=== PATIENT | female | born 1985 | race Caucasian/White ===

== ENCOUNTER 2022-08-29 06:35 | Day surgery (SDC) | payer OTHER ==
[~2022-08-29] VITALS: Ht 180.3 cm; Wt 85.7 kg
[2022-08-29] VITALS (232 sets, daily range): BP systolic 78–123; BP diastolic 44–89
--- NOTE | 2022-08-29 07:10 | NUR ---
PT HAS ARRIVED TO [facility] SUITES WITH DAD. BOTH HAVE BEEN ESCORTED TO ROOM AND EXPLAINED POC, ALL QUESTIONS HAVE BEEN ADDRESSED. PT HAS BEEN ORIENTED TO RROM, CALL LIGHT AND FALL RISK PRECATIONS. PT IS A&OX3, FOLLOWS COMMANDS AND IS ABLE TO MAKE HIS NEEDS KNOWN. PT VS ASSESSED. PT NEEDS HAVE BEEN ADDRESSED. WILL CONTINUE TO MONITOR.
[2022-08-29 08:43] LABS: BASO% 0.6 % (0-3); EOS% 1.9 % (0-8); HEMATOCRIT 44.1 % (37.0-47.0); HEMOGLOBIN 14.1 g/dl (12.0-16.0); IMMATURE GRANULOCYTES 0.2 % (0.0-5.0); LYMPH% 38.3 % (15-41); MEAN CELL VOLUME 87.5 fL CALC (80.0-100.0); NEUT# 2.32 thou/uL (2.00-7.15); RED BLOOD COUNT 5.04 mill/uL (4.20-5.60)
[2022-08-29 09:01] LABS: ALBUMIN 4.8 g/dL (3.2-5.0); ALKALINE PHOSPHATASE 89 u/l (38-126); ANION GAP 10 (6-22 (CALC)); BUN 12 mg/dL (7-17); BUN/CREATININE RATIO 17 (12-20 (CALC)); CARBON DIOXIDE 30 mmol/l (22-30); CHLORIDE 102 mmol/l (95-108); CREATININE 0.7 mg/dL (0.5-1.0); GFR FOR AFR.AMER. > 60 ML/MIN (>=60 (CALC)); GFR OTHER RACES > 60 ML/MIN (>=60 (CALC)); POTASSIUM 3.9 mmol/l (3.5-5.1); SGOT/AST 103 u/l (14-36); SODIUM 138 mmol/l (137-146); TOTAL PROTEIN 7.5 g/dL (6.3-8.2)
[2022-08-29] MEDS ORDERED: XANAX1 MG PO (09:07)
--- NOTE | 2022-08-29 09:30 | NUR ---
PT HAS BEEN REASSESSED, PT IS SLEEPING EASILY AROUSED, BUT FALLS BACK TO SLEEP. WILL CONTINUE TO MONITOR. BOLUS R'CD PER
--- NOTE | 2022-08-29 11:35 | NUR ---
Induction Note Patient to [facility] procedure room. Time out performed at 1135. Patient placed on monitors, Aaron hugger, bilateral wrist restraints applied for ET tube protection. Versed 5mg given IV push at 1136 Tourniquet applied to RIGHT arm Lidocaine 100mg given at 1137 IV push followed by Rocoronium 10mg at 1138 IV push and held for 90 seconds. Propofol bolus of 180mg given at 1140 IV push. Succinylcholine 100mg given IV push at 1141. Smooth intubation with 7.5 ETT. Positive CO2. Positive Auscultation for air exchange. Patient placed on ventilator for spontaneous ventilation. Placed on Propofol IV drip at 1142. OG inserted. Positive air on auscultation. Positive gastric content. Stomach washed at this time.
--- NOTE | 2022-08-29 11:50 | NUR ---
OG close note Stomach washed at this time. Naltrexone 50 mg with Clonidine 0.1 mg via OG tube. OG will be clamped for 45 minutes.
--- NOTE | 2022-08-29 12:35 | NUR ---
OG open note OG open at this time. Gastric content draining into drainage bag. OG to drain for 45 minutes. Propofol will be titrated down based on patient.
--- NOTE | 2022-08-29 13:20 | NUR ---
OG close note Stomach washed at this time. Naltrexone 50 mg with Clonidine 0.2 mg via OG tube. OG will be clamped for 45 minutes.
--- NOTE | 2022-08-29 14:50 | NUR ---
OG close note Stomach washed at this time. Naltrexone 50 mg with Clonidine 0.1 mg via OG tube. OG will be clamped for 45 minutes.
--- NOTE | 2022-08-29 16:40 | NUR ---
OG close note Stomach washed at this time. Naltrexone 12.5 mg with Clonidine 0.1 mg via OG tube. OG will be clamped for 45 minutes.
[2022-08-29] MEDS ORDERED: CLONIDINE0.1 MG PO (16:41)
[2022-08-29] MEDS ORDERED: KLONOPIN2 MG PO (16:41)
[2022-08-29] MEDS ORDERED: NALTREXONE50 MG PO (16:41)
--- NOTE | 2022-08-29 19:00 | NUR ---
Extubation note Closing medications given Benadryl 50mg IV push, Decadron 10mg IV push,Magnesium 4 grams IV, Zofran 8mg IV push, Octreotide 100mcg SC. Stomach washed out prior to extubation. Suctioned gastric content. OG removed. Patient extubated. Propofol Discontinued. Wrist restraints removed. Aaron hugger Removed. See [facility] Moderate sedate recovery record for further notes and assessment.
--- NOTE | 2022-08-29 19:30 | NUR ---
PT HAS BEEN TRANSFERED TO [facility], REPORT GIVEN TO LAURA DONOVAN. PT IS AOUABLE TO TACTILE STIMULI, 2LNC ATTACHED. VS ASSESSED. LR INFUSING TO RAC @ 125ML/HR. BED ALARM IS ACTIVE.
--- NOTE | 2022-08-29 19:35 | NUR ---
PATIENT RECEIVED TO ROOM 287. RESTING QUIETLY EYES CLOSED. VITALS OBTAINED, VSS; NO DISTRESS NOTED. BEDSIDE REPORT RECEIVED FROM LAURA MULLINS. BED IN LOW POSITION, LOCKED; ALARM ACTIVATED.
--- NOTE | 2022-08-30 00:50 | NUR ---
RESTING QUIETLY EYES CLOSED. BED IN LOW POSITION, ALARM ACTIVATED.
[2022-08-30 04:06] VITALS: BP 141/92
--- NOTE | 2022-08-30 04:36 | NUR ---
LARGE YELLOW EMESIS. SCHEDULED REGLAN ADMINISTERED AT THIS TIME. WILL FOLLOW WITH ORAL MEDS IN A HALF HOUR.
[2022-08-30 05:38] LABS: BASO% 0.1 % (0-3); HEMATOCRIT 38.4 % (37.0-47.0); HEMOGLOBIN 12.6 g/dl (12.0-16.0); IMMATURE GRANULOCYTES 0.2 % (0.0-5.0); LYMPH% 9.8 % (15-41); MEAN CELL VOLUME 85.7 fL CALC (80.0-100.0); MEAN CORPUSCULAR HGB 28.1 pG CALC (26.0-32.0); MEAN CORPUSCULAR HGB CONC 32.8 g/dL CAL (32.0-36.0); MONO% 1.4 % (2-13); NEUT# 8.06 thou/uL (2.00-7.15); NEUT% 88.5 % (42-76); RED BLOOD COUNT 4.48 mill/uL (4.20-5.60); RED CELL DISTRI WIDTH 11.8 % (11.5-15.5)
[2022-08-30 05:52] LABS: ALBUMIN 4.1 g/dL (3.2-5.0); ALKALINE PHOSPHATASE 74 u/l (38-126); BUN 11 mg/dL (7-17); BUN/CREATININE RATIO 16 (12-20 (CALC)); CHLORIDE 103 mmol/l (95-108); CREATININE 0.7 mg/dL (0.5-1.0); GFR FOR AFR.AMER. > 60 ML/MIN (>=60 (CALC)); GFR OTHER RACES > 60 ML/MIN (>=60 (CALC)); MAGNESIUM 2.1 mg/dL (1.6-2.3); POTASSIUM 4.3 mmol/l (3.5-5.1); SGOT/AST 62 u/l (14-36); SODIUM 136 mmol/l (137-146); TOTAL PROTEIN 6.4 g/dL (6.3-8.2)
[2022-08-30 05:59] LABS: ANION GAP 14 (6-22 (CALC)); BILIRUBIN, TOTAL 0.2 mg/dL (0.02-1.3); CARBON DIOXIDE 23 mmol/l (22-30)
--- NOTE | 2022-08-30 07:05 | NUR ---
REPORT FROM ZION SANCHEZ. ASSUMED PT CARE.
[2022-08-30 07:20] VITALS: BP 131/61
[2022-08-30 07:24] VITALS: BP 131/61
--- NOTE | 2022-08-30 08:07 | NUR ---
PT VERY RESTLESS AT THIS TIME. DECREASED STIMULI, PROVIDED WARM BLANKETS AND MEDICATED WITH PRN KLONOPIN. CALL LIGHT WITHIN REACH. BED ALARM ON FOR SAFETY. WILL CONTINUE TO MONITOR.
--- NOTE | 2022-08-30 09:25 | NUR ---
Dr. 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 Expected discharge today. Discharge plan in progress.
--- NOTE | 2022-08-30 11:41 | NUR ---
Patient's support person (SP) telephoned with overnight update and to begin discharge planning. All questions answered satisfactorily, no concerns presented. SP agreeable to discharge plan.
--- NOTE | 2022-08-30 11:51 | NUR ---
ASSISTED PT OOB TO BATHROOM. PT AMBULATED WITH STEADY GAIT. NO APPARENT S/S OF DISTRESS NOTED. PT SET UP FOR SHOWER AT THIS TIME AND CLEAN LINENS APPLIED TO BED. CALL LIGHT WITHIN REACH. WILL CONTINUE TO MONITOR.
[2022-08-30 12:37] VITALS: BP 140/77
--- NOTE | 2022-08-30 12:45 | NUR ---
Dr. Sung to bedside for post-procedure evaluation. Report from LAURA Sanches. Discharge process reviewed, discharge requirements discussed with patient including ambulation, tolerance of food and oral fluids, and personal hygeine. Cleared for discharge after 1600.
--- NOTE | 2022-08-30 16:02 | NUR ---
RIGHT GROIN TRIPLE LUMEN CVAD REMOVED AT THIS TIME. PT TOLERATED WELL. PRESSURE DRESSING APPLIED.
--- NOTE | 2022-08-30 16:40 | NUR ---
Patient discharged in stable condition. Reports no nausea, tolerated PO intake, ambulatory with stable gait. CVC removed on floor and confirmed in discharge suite. Patient remained alert and conversive during discharge teaching. Father states undestanding of discharge instructions and offers no further questions. Medication education given at length and patient and father stated understanding.
--- NOTE | 2022-08-30 16:55 | NUR ---
Discharge instructions given. Patient verbalizes understanding of same. Discharged in stable condition via Ambulatory to Home with family. All belongings sent with pt.
== END 2022-08-30 16:56 | disposition home or self-care (01) | DRG 897 ==
LOC: ANR 06:35 → MS2 06:35 → ANR 07:00 → MS2 17:22 → ANR 08-30 16:56
PROVIDERS: ATTEND Anesthesiology Critical Care Medicine
DX: F11.20 Opioid dependence, uncomplicated (principal)
CPT/HCPCS: J0131; J2354; J3475